=== PATIENT | female | born 1985 | race Caucasian/White ===

== ENCOUNTER 2024-02-04 03:28 | Day surgery (SDC) | payer OTHER, SELFPAY ==
[2024-02-03 19:21] VITALS: BP 118/64
[2024-02-03 19:35] LABS: % Basophils 0.4 % (0-2); % Eosinophils 0.2 % (0-6); % Immature Granulocytes 0.3 % (0-0.5); % Lymphocytes 10.6 % (20.5-51.1); % Monocytes 4.7 % (1.7-9.3); % Neutrophils 83.8 % (42.2-75.2); Absolute Basophils 0.1 10^3/uL (0-0.2); Absolute Immature Granulocytes 0.1 10^3/uL (0-0.05); Absolute Lymphocytes 1.7 10^3/uL (1.2-3.4); Absolute Monocytes 0.8 10^3/uL (0.1-0.6); Absolute Neutrophils 13.3 10^3/uL (1.4-6.5); Hematocrit 42.2 % (37.0-47.0); Hemoglobin 14.9 g/dL (12.0-16.0); Mean Corp Hgb Conc. 35.3 g/dL (33.0-37.0); Mean Corpuscular Hgb 33.6 pg (27.0-31.0); Mean Platelet Volume 9.5 fL (7.4-10.4); Nucleated Red Blood Cells % 0 %; Platelet Count 358 10^3/uL (130-400); Red Blood Cell Count 4.44 10^6/uL (4.20-5.40); Red Cell Dist. Width 12.3 % (11.5-14.5); White Blood Cell Count 15.9 10^3/uL (4.8-10.8)
[2024-02-03 19:54] LABS: ALT (SGPT) 17 U/L (0-35); AST (SGOT) 22 U/L (14-36); Albumin 4.5 g/dl (3.5-5.0); Alkaline Phosphatase 78 U/L (38-126); Blood Urea Nitrogen 17 mg/dl (7-17); Calcium 9.6 mg/dl (8.4-10.2); Carbon Dioxide 27 mmol/L (22-30); Chloride 103 mmol/L (98-107); Glucose 104 mg/dl (70-99); Potassium 4.4 mmol/L (3.5-5.1); Sodium 140 mmol/L (135-145); Total Bilirubin 0.5 mg/dl (0.2-1.3); Total Protein 7.3 g/dl (6.3-8.2); eGFR > 60.00
[2024-02-03 19:55] LABS: HCG, Serum Qualitative Screen Negative
--- NOTE | 2024-02-03 19:58 | ED.GENMED ---
History of Present Illness
General
Chief Complaint: Abdominal Pain
Source: patient and family
Exam Limitations: none
Time Seen by Provider: 02/03/24 19:44
Nursing documentation reviewed up to this point in time: agreed with
Travel History
Have you had any contact with someone who has COVID-19?: No
Do you have any symptoms of coronavirus? Fever > 100 degrees, chills, cough, shortness of breath, sore throat, loss of taste or smell, muscle aches, or headache?: No
History of Present Illness
History of Present Illness:
Pleasant 38-year-old female presents with left lower abdominal pain, that came on suddenly and has been persistent. She states that she has had an ovarian cyst in the past that cause similar pain. She denies any urinary symptoms. She states that
when her pain is at the worst, she has some nausea and vomiting. Denies fever or chills. Denies vaginal bleeding or discharge. Reports no urinary symptoms.
Past History
Past History
ED Past Medical History: None
ED Past Surgical History: None
Review of Systems
Review of Systems
Allergies reviewed?: Yes
Other source history: family
All Other Systems: ROS reviewed and negative except as documented in HPI and ROS
Constitutional: Reports no symptoms
EENT: Reports no symptoms
Respiratory: Reports no symptoms
Cardiac: Reports no symptoms
ABD/GI: Reports abdominal pain and nausea
: Reports no symptoms
Musculoskeletal: Reports no symptoms
Skin: Reports no symptoms
Neurological: Reports no symptoms
Endocrine: Reports no symptoms
Hematologic/Lymphatic: Reports no symptoms
Psychiatric: Reports anxiety
Phy Exam
General Physical Exam
General Presentation: well appearing and no apparent distress
General Skin: warm and dry
General Habitus: normal
General Mental: alert
General Hydration: appears well hydrated
ENT Exam
ENT Exam: EOMI, pharynx normal, neck supple and normocephalic
Eye Exam
Eye Exam: PERRL, cornea clear and conjunctiva normal
Cardiovascular Exam
Cardiovascular Exam: regular rate/rhythm, no edema, no murmur and normal peripheral pulses
Pulmonary Exam
Pulmonary Exam: lungs clear, no respiratory distress, no rales, no crackles, no rhonchi, no stridor, no wheezing and no cough
Gastrointestinal Exam
Gastrointestinal Exam: normal bowel sounds, soft, no organomegaly, no pulsatile mass, non distended and tender
Palpation: left lower quadrant: Mild tenderness
Neurological Exam
Neurological Exam: alert, oriented x3, no motor deficits and speech normal
Musculoskeletal Exam
Musculoskeletal Exam: full ROM and no edema
Skin Exam
Skin Exam: normal color, warm/dry, no rash and no petechia
Psychiatric Exam
Psychiatric Exam: normal mood/affect
Course
Orders/Labs/Results
Orders:
Orders
02/03/24 19:25
Urinalysis Urgent
Date Specimen was Collected: 02/03/24
Time Specimen was Collected: 19:25
Test Result ONCE
02/03/24 19:29
CMP [Comprehensive Metabolic Panel] Urgent
Complete Blood Count/With Diff Urgent
HCG, Serum Qualitative Screen Urgent
02/03/24 19:56
US Pelvis W Transvag Combined Urgent
Reason For Exam: left ovarian pain
02/03/24 21:17
Oxycodone/Acetaminophen [Percocet 5/325] 1 tablet PO NOW STA
02/03/24 21:47
Ondansetron Injectable [Zofran] 4 mg IV NOW STA
02/03/24 21:48
Morphine Sulfate 4 mg IV NOW STA
02/03/24 22:18
0.9% Sodium Chloride 1000 ml [Nss] 1,000 ml IV BOLUS
02/03/24 22:34
Ketorolac [Toradol] 30 mg IV NOW STA
02/04/24 00:05
CT Abd/pel Without Iv Or Oral Urgent
Reason For Exam: left flank pain
Abnormal Lab Results
02/03/24 02/04/24
19:29 01:05
WBC 15.9 H 10^3/uL
(4.8-10.8)
MCH 33.6 H pg
(27.0-31.0)
Abs Immat Gran (auto) 0.1 H 10^3/uL
(0-0.05)
Absolute Neuts (auto) 13.3 H 10^3/uL
(1.4-6.5)
Absolute Monos (auto) 0.8 H 10^3/uL
(0.1-0.6)
Neutrophils % 83.8 H %
(42.2-75.2)
Lymphocytes % 10.6 L %
(20.5-51.1)
Glucose 104 H mg/dl
(70-99)
Urine Ketones 3+ A
(Negative)
02/03/24 19:29
02/03/24 19:29
Vital Signs
Initial and Last Documented VS:
Initial Vital Signs
Temp Pulse Resp BP Pulse Ox
97.8 F 66 24 118/64 98
02/03/24 19:21 02/03/24 19:21 02/03/24 19:21 02/03/24 19:21 02/03/24 19:21
Last Documented Vital Signs
Temp Pulse Resp BP Pulse Ox
97.8 F 62 14 108/60 98
02/03/24 19:21 02/04/24 01:00 02/03/24 23:27 02/04/24 01:00 02/04/24 01:00
*Radiology
Radiology exam reviewed: radiology read reviewed
*Pulse Oximetry
Patient hypoxic: no
*Critical Care Note
Total Time (30-74mins, 75-104mins- exclusive of procedures): Not Applicable
Update Note
Update Note:
Back in to see the patient. Patient urinated a CAT scan. She feels that she cannot pee at this point. Did discuss CT scan after speaking of ultrasound results.
CT ABDOMEN/PELVIS WITHOUT CONTRAST
IMPRESSION:
1. Mild wall thickening of loops of small bowel within the central abdomen, likely represents underlying enteritis.
2. No bowel obstruction. Normal gallbladder and appendix
Incidentals:
-Distal esophageal wall thickening, can be correlated with signs or symptoms of esophagitis
- No obstructive uropathy. Prominent left ovarian cyst measuring up to 5.7 x 5.1 cm
- No hepatic or pancreatic mass.
- No abdominal aortic aneurysm.
- No acute osseous abnormality.
- No acute abnormality within the visualized lungs. Bibasilar atelectasis
- No acute abnormality within the visualized soft tissues.
ED Attending Note
-
Portions of this chart may have been created with voice recognition software.� Occasional wrong word or��sound alike� substitutions may have occurred due to the inherent limitations of voice recognition software.
Discharge Plan
Departure
Patient Disposition: Admit
Date of Disposition: 02/04/24
Time of Disposition: 02:40
Admit to: Med/Surg
Presentation/result/management discussed w/ accepting MD/DO: Hospitalist
Condition: Fair
Discharge Problem:
Left lower quadrant abdominal pain, Ovarian cyst, Enteritis
Instructions: Abdominal Pain, Ovarian Cyst (DC)
Prescriptions:
No Action
Control Pill
1 tab PO DAILY
Referrals:
NONE,* [Family Provider] -
Interventions
Interventions:
*Risk Screen - Suicide Last Done: 02/03/24 19:21
*General Assessment Last Done: 02/03/24 20:02
*Neglect/Abuse Screening Last Done: 02/03/24 19:21
*ED COVID-19 Vaccine History Last Done: 06/02/24 19:46
VB-Ooiplp-Ywkgnfvjgx Assessment Last Done: 02/03/24 20:02
ED-Female Genitourinary Assessment Last Done: 02/03/24 20:02
Discharge Date and Time
Print Language: LUXEMBOURGISH
[2024-02-03 20:02] VITALS: BMI 26.1
--- NOTE | 2024-02-03 20:06 | EDRN ---
Pt developed pain L flank earlier this morning and it has moved to LLQ. No pain in L flank now. Pain comes in waves and described as sharp. Nausea and vomiting - 5 episodes. No nausea now. Pt has had chills. Pt denies urinary symptoms, cp,
sob, diarrhea/constipation, bleeding, fever/cough. Pt had similar symptoms in the past but says she had bleeding at that time, passed out and when she woke up the pain was gone so she assumed she had an ovarian cyst. No hx kidney stones.
[2024-02-03 21:05] VITALS: BP 112/58
--- NOTE | 2024-02-03 21:24 | EDRN ---
Pt's bladder was not full so pt was sent back to ED. Pt vomited and says her pain is now 10/10, worse than childbirth. Pt declined PO percocet because because she is concerned she will vomit it up. Pt wants IV medications - Dr Sena informed.
[2024-02-03] MEDS: ZOFRAN 4 MG IV (21:51)
[2024-02-03] MEDS: MORPHINE SULFATE 4 MG IV (21:54)
[2024-02-03] MEDS: NSS 1000 IV (22:27)
[2024-02-03] MEDS: TORADOL 30 MG IV (22:38)
[2024-02-03 23:27] VITALS: BP 102/52
[2024-02-04] VITALS (20 sets, daily range): BP systolic 89–113; BP diastolic 5–70; PULSE 46–76
[2024-02-04 01:20] LABS: Urine Albumin Negative (Neg - Trace); Urine Bilirubin Negative (Negative); Urine Character Clear (Clear); Urine Color Yellow; Urine Glucose Negative (Negative); Urine Ketone 3+ (Negative); Urine Leukocyte Negative (Negative); Urine Nitrite Negative (Negative); Urine Occult Blood Negative (Negative); Urine Urobilinogen Negative (Neg - 1+)
--- NOTE | 2024-02-04 03:21 | HPS.HSE ---
Family Physician
-
Family Physician: * NONE
Chief Complaint
-
Abd Pain
History of Present Illness
Patient is a 38y F with no significant PMH who presents to ED complaining of abdominal pain with N/V. Patient states she was feeling fairly well until this afternoon when she developed LLQ abdominal discomfort. Her pain progressively worsened
throughout the afternoon and she developed nausea with mtuliple episodes of non-bloody, bilious emesis. Patient presented to the ED for further evaluation. She denies any diarrhea. Had a normal BM yesterday.
No fevers but complains of alternating hot / cold sensations.
Patient states that she had a similar episode in mid-November with severe LLQ pain and N/V. This resolved within 24 hours.
No other similar episodes.
LMP was 2 weeks ago.
Medical History
Past Medical History
Past Medical History: Reports None
Past Surgical History: Reports None
Social History
Tobacco: Smoker (Current every day smoker.)
Alcohol: None
Drug: None
Family History
Family History: Not pertinent
Allergies / Home Medications
Allergies reflects when Allergies were last updated in [employer].
Home Medications with original date entered in [employer]
Allergy/Medication List:
Allergies
Allergy/AdvReac Type Severity Reaction Status Date / Time
No Known Drug Allergies Allergy NONE Verified 02/03/24 19:25
Home Medications
Control Pill 1 tab PO DAILY 02/03/24
Review of Systems
-
History Source: Patient
A 12 point ROS was completed and negative except as noted: Yes
Constitutional: Reports Fatigue; Denies Fever or Chills
EENT: Denies Sore Throat
Respiratory: Denies Cough or Trouble Breathing
Cardiac: Denies Chest Pain or Palpitations
Abdomen/GI: Reports Abdominal Pain, Nausea, Vomiting and Anorexia; Denies Diarrhea, Constipated, Bloody Stools or Black Stools
: Denies Dysuria, Frequency or Flank Pain
Musculoskeletal: Denies Joint Pain or Edema
Neurological: Denies Dizzy or Headache
Psych: Denies Depression or Anxiety
Physical Exam
Vital Signs
Vital Signs
Temp Pulse Resp BP Pulse Ox
97.8 F 62 14 108/60 98
02/03/24 19:21 02/04/24 01:00 02/03/24 23:27 02/04/24 01:00 02/04/24 01:00
Physical Exam
General: Other (38y F in mild distress due to abdominal pain.)
HEENT: Moist mucous membranes and PERRLA
Respiratory: Clear; No Wheezes, Rales or Rhonchi
Cardiac: S1/S2 and Regular Rhythm; No Murmur
GI: Soft, Non Distended, Normal Bowel Sounds and Other (Mild LLQ tenderness with voluntary guarding. No rebound.)
Musculoskeletal: No Clubbing, No Cyanosis and No Edema
Neuro: AO x 3
Laboratory Results
-
02/03/24 19:29
02/03/24 19:29
Laboratory Results
Total Bilirubin 0.5 mg/dl (0.2-1.3) 02/03/24 19:29
AST 22 U/L (14-36) 02/03/24 19:29
ALT 17 U/L (0-35) 02/03/24 19:29
Alkaline Phosphatase 78 U/L (38-126) 02/03/24 19:29
Impression/Plan
-
A/P: Patient is a 38y F with no significant PMH who presents to ED complaining of abdominal pain with N/V.
Abdominal Pain
- Observe overnight for further evaluation and treatment.
- Differential at present based on symptoms and CT findings including ovarian cyst v enteritis.
- No diarrhea, fever, etc.
- Had similar symptoms in November - ? cyclic.
- Supportive care with IVFs, pain control, etc.
- HUMAN RESOURCES GENERALIST consult for further evaluation re: ovarian cyst.
- Follow for any new / worsening symptoms.
DVT Prophylaxis: SCDs
Code Status: Full
[2024-02-04] MEDS: NSS 1000 IV ×3 (04:13→20:57)
[2024-02-04] MEDS: DILAUDID 0.5 MG IV ×3 (04:20→14:39)
[2024-02-04 05:12] LABS: Hematocrit 37.9 % (37.0-47.0); Hemoglobin 13.4 g/dL (12.0-16.0); Mean Corp Hgb Conc. 35.4 g/dL (33.0-37.0); Mean Corpuscular Hgb 33.8 pg (27.0-31.0); Mean Corpuscular Volume 95.5 fL (81.0-99.0); Mean Platelet Volume 9.9 fL (7.4-10.4); Platelet Count 320 10^3/uL (130-400); Red Blood Cell Count 3.97 10^6/uL (4.20-5.40); Red Cell Dist. Width 12.2 % (11.5-14.5); White Blood Cell Count 12.3 10^3/uL (4.8-10.8)
[2024-02-04 05:30] LABS: ALT (SGPT) 14 U/L (0-35); AST (SGOT) 21 U/L (14-36); Albumin 3.6 g/dl (3.5-5.0); Alkaline Phosphatase 69 U/L (38-126); Blood Urea Nitrogen 12 mg/dl (7-17); Calcium 8.7 mg/dl (8.4-10.2); Carbon Dioxide 22 mmol/L (22-30); Chloride 105 mmol/L (98-107); Direct Bilirubin 0.4 mg/dl (0.0-0.4); Estimated Creatinine Clearance 111 ml/min; Glucose 100 mg/dl (70-99); Potassium 3.8 mmol/L (3.5-5.1); Sodium 135 mmol/L (135-145); Total Bilirubin 0.7 mg/dl (0.2-1.3); Total Protein 6.1 g/dl (6.3-8.2); eGFR > 60.00
[2024-02-04] MEDS: NSS (PRESERVATIVE FREE) 10 ML IV (07:57)
[2024-02-04] MEDS: TORADOL 15 MG IV ×2 (07:57→14:37)
[2024-02-04] MEDS: PROTONIX IV 40 MG IV (07:57)
--- NOTE | 2024-02-04 09:24 | W.PN.HOSP.TC ---
Today's Communication/Plan
-
TRAINING DEVELOPER took patient to the OR given her ovarian cyst
Hopefully abominal pain will improve
Assessment / Plan
Assessment / Plan
Physical Exam
General: Other (38y F in mild distress due to abdominal pain.)
HEENT: Moist mucous membranes
Respiratory: Clear; No Wheezes, Rales or Rhonchi
Cardiac: S1/S2 and Regular Rhythm; No Murmur
GI: Soft, Non Distended, Normal Bowel Sounds and Other (Mild LLQ tenderness with voluntary guarding. No rebound.)
Musculoskeletal: No Clubbing, No Cyanosis and No Edema
Neuro: AO x [address] Abdomen/Pelvis results, as per radiologist's report:
IMPRESSION:
1. Left adnexal cyst measuring up to 4.7 cm in diameter, consistent with the complex cyst seen on pelvic ultrasound of one day prior. No other acute intra-abdominal process is identified.
2. Tiny fat attenuation lesion of the left kidney as above, possible small benign angiomyolipoma.
3. Probable small hiatal hernia.
4. Preliminary report describes possible enteritis. While this is possible, in the absence of either intravenous or enteric contrast I do not see findings to definitively confirm the presence of acute enteritis.
US Pelvis with Transvaginal Ultrasound, as per radiologist's report:
IMPRESSION:
Probably benign complex cyst of the left ovary. Repeat ultrasound in 6 weeks at a different phase of patient's menstrual cycle is recommended.

Assessment/Plan
A/P: Patient is a 38y F with no significant PMH who presents to ED complaining of abdominal pain with N/V.
Abdominal Pain Suspected Secondary to Ovarian Cyst on Imaging and Enteritis on CT imaging
- Differential at present based on symptoms and CT findings including ovarian cyst v enteritis.
- No diarrhea, fever, etc.
- Had similar symptoms in November - ? cyclic.
- Supportive care with IVFs, pain control, etc.
- TRAINING DEVELOPER consult for further evaluation re: ovarian cyst: TRAINING DEVELOPER took patient to the OR
- Follow for any new / worsening symptoms.
DVT Prophylaxis: SCDs
Code Status: Full
Anticipated Discharge: 24 - 48 hours
Subjective/Interval History
-
Date of Service: February 04, 2024
Patient was seen and examined. She reported continued abdominal pain with temporary relief with dilaudid.
Objective Data
-
Labs:
Laboratory Results
02/04/24
05:00
WBC 12.3 H
Hgb 13.4
Hct 37.9
Plt Count 320
Sodium 135
Potassium 3.8
Chloride 105
Carbon Dioxide 22
BUN 12
Creatinine 0.5 L
Glucose 100 H
Calcium 8.7
Total Bilirubin 0.7
AST 21
ALT 14
Alkaline Phosphatase 69
Vital Signs:
Vital Signs
Temp Pulse Resp BP Pulse Ox
98 F 64 18 98/52 95
02/04/24 07:31 02/04/24 07:31 02/04/24 07:31 02/04/24 07:31 02/04/24 07:31
[2024-02-04 18:39] LABS: CA 125 < 5.5 U/mL (0-35)
--- NOTE | 2024-02-04 19:53 | W.IMMPOSTOP ---
Surgical Immed Post Op Note
-
Primary Surgeon: Tiara Patterson DO
Assisting Surgeon: none
PA-Student Bev GANN
Pre-op Diagnosis: Left lower quadrant pain, left ovarian cyst
Post-op Diagnosis: same, torsion left adnexa
Procedure Performed: Dx laparoscopy with detorsion of left adnexa and left ovarian cystectomy; aspiration of pelvic fluid.
Anesthesia Type: general Dr. Cruz
Specimen / Cultures: 1. pelvic fluid aspirate for cytology 2. left ovarian cyst wall
Estimated Blood Loss: 5ml
Complications: none
Operative Findings: Large left ovarian cyst approx 5cm. Cyst containing straw colored fluid, smooth capsule. Left adnexa torsed. Healthy tissue noted. Normal appearing tubes. Normal appearing right ovary. Normal appearing appendix.
Counts correct times 2.
Stable to recovery.
Dictated. #[id number]
[2024-02-04] MEDS: COLACE 100 MG PO (21:42)
[2024-02-04] MEDS: NORMOSOL-R 1000 IV (22:56)
[2024-02-05 00:30] VITALS: BP 93/51
[2024-02-05] MEDS: NSS IV (01:39)
[2024-02-05 03:45] VITALS: BP 93/66; BP 97/60; BP 99/58
[2024-02-05 03:48] VITALS: BP 93/66
[2024-02-05] MEDS: NORMOSOL-R 1000 IV (04:47)
[2024-02-05 05:56] LABS: % Basophils 0.1 % (0-2); % Immature Granulocytes 0.3 % (0-0.5); % Monocytes 4.5 % (1.7-9.3); % Neutrophils 85.1 % (42.2-75.2); Absolute Lymphocytes 1.2 10^3/uL (1.2-3.4); Absolute Monocytes 0.5 10^3/uL (0.1-0.6); Hematocrit 37.3 % (37.0-47.0); Hemoglobin 12.2 g/dL (12.0-16.0); Mean Corp Hgb Conc. 32.7 g/dL (33.0-37.0); Mean Corpuscular Volume 100.8 fL (81.0-99.0); Mean Platelet Volume 10.2 fL (7.4-10.4); Nucleated Red Blood Cells % 0 %; Platelet Count 277 10^3/uL (130-400); Red Cell Dist. Width 12.4 % (11.5-14.5); White Blood Cell Count 11.7 10^3/uL (4.8-10.8)
[2024-02-05 06:00] VITALS: BMI 27.9
[2024-02-05 06:21] LABS: Blood Urea Nitrogen 7 mg/dl (7-17); Carbon Dioxide 26 mmol/L (22-30); Chloride 107 mmol/L (98-107); Estimated Creatinine Clearance > 125 ml/min; Potassium 4.4 mmol/L (3.5-5.1); Sodium 137 mmol/L (135-145)
[2024-02-05] MEDS: COLACE 100 MG PO (07:53)
[2024-02-05] MEDS: PROTONIX IV 40 MG IV (07:54)
[2024-02-05] MEDS: DILAUDID 0.5 MG IV (07:54)
[2024-02-05 08:09] VITALS: BP 102/62; BP 106/59; BP 93/47; PULSE 62; PULSE 75
--- NOTE | 2024-02-05 08:26 | W.PN.OBG.DWH ---
Today's Communication / Plan
-
stable from equipment operating engineer standpoint for dc home today after breakfast.
Assessment/Plan
-
POD# 1 s/p dx laparoscopy detorsion left adnexa, left ovarian cystectomy
Stable for dc home
Reviewed dc instructions
Rx oxycodone sent to pharm
Follow up in 1-2 wks in office. Pt aware to call for appt
Subjective Data
-
POD#1 Feeling well. Hungry. Pain is less than before surgery.
No complaints.
Objective Data
-
Laboratory Results
02/05/24 05:31
02/05/24 05:31
Vital Signs
Temp Pulse Resp BP Pulse Ox
98.9 F 62 21 93/47 96
02/05/24 08:09 02/05/24 08:09 02/05/24 08:09 02/05/24 08:09 02/05/24 08:09
VSS afeb
abd: soft NDNT inc cdi
ext: no calf pain
[2024-02-05 09:15] VITALS: BP 102/58; BP 104/66; BP 107/55; PULSE 48; PULSE 50; PULSE 55
[2024-02-05 09:50] LABS: Cortisol, Random 1.3 ug/dl
--- NOTE | 2024-02-05 11:29 | W.PN.HOSP.TC ---
Today's Communication/Plan
-
Discharge today
Assessment / Plan
Assessment / Plan
Physical Exam
General: Not in acute distress.
HEENT: Moist mucous membranes
Respiratory: Clear to Auscultation Bilaterally
Cardiac: S1/S2 and Regular Rhythm
GI: Soft, Non Distended, Normal Bowel Sounds. Mild abdominal tenderness as expected with the surgery.
Musculoskeletal: No Cyanosis and No Edema
Neuro: AAO x [address] Abdomen/Pelvis results, as per radiologist's report:
IMPRESSION:
1. Left adnexal cyst measuring up to 4.7 cm in diameter, consistent with the complex cyst seen on pelvic ultrasound of one day prior. No other acute intra-abdominal process is identified.
2. Tiny fat attenuation lesion of the left kidney as above, possible small benign angiomyolipoma.
3. Probable small hiatal hernia.
4. Preliminary report describes possible enteritis. While this is possible, in the absence of either intravenous or enteric contrast I do not see findings to definitively confirm the presence of acute enteritis.
US Pelvis with Transvaginal Ultrasound, as per radiologist's report:
IMPRESSION:
Probably benign complex cyst of the left ovary. Repeat ultrasound in 6 weeks at a different phase of patient's menstrual cycle is recommended.

Assessment/Plan
A/P: Patient is a 38y F with no significant PMH who presents to ED complaining of abdominal pain with N/V.
Abdominal Pain Suspected Secondary to Ovarian Cyst on Imaging and Possibly Enteritis on CT imaging
Status post laparoscopy with detorsion of left adnexa and left ovarian cystectomy, and aspiration of pelvic fluid on February 06, 2024
- Patient is feeling better after surgery yesterday
- LOSS PREVENTION LEAD consult for further evaluation re: ovarian cyst: LOSS PREVENTION LEAD took patient to the OR
- Follow up with Dr. Tiara Patterson in 1-2 weeks.
Hypotension, asymptomatic
-Patient reports her blood pressure is chronically low
-She denied any dizziness or chest pain or any orthostatic symptoms
-Orthostatic vital signs negative
-Follow-up with PCP outpatient
DVT Prophylaxis: SCDs
Code Status: Full
More than 30 minutes spent in discharge including
Final examination of the patient
Summarizing hospital stay
Instructions for continuing care to all relevant caregivers
Preparation of discharge records, prescriptions, and referral forms
Total time spent (in minutes): 37
Anticipated Discharge: Today
Subjective/Interval History
-
Date of Service: February 05, 2024
Patient was seen and examined. She reports her abdominal pain has improved after surgery yesterday. She denied dizziness, chest pain, shortness of breath or palpitations.
Objective Data
-
Labs:
Laboratory Results
02/05/24
05:31
WBC 11.7 H
Hgb 12.2
Hct 37.3
Plt Count 277
Sodium 137
Potassium 4.4
Chloride 107
Carbon Dioxide 26
BUN 7
Creatinine 0.6
Vital Signs:
Vital Signs
Temp Pulse Resp BP Pulse Ox
98.9 F 62 21 93/47 96
02/05/24 08:09 02/05/24 08:09 02/05/24 08:09 02/05/24 08:09 02/05/24 08:09
I&O
02/04/24 02/05/24 02/06/24
06:59 06:59 06:59
Intake Total 500 / 500
Balance 500 / 500
--- NOTE | 2024-02-05 12:50 | W.DS.TRANS ---
DC Summary - Auto Transmission Technician
-
Discharge Instructions:
Discharge Diagnosis/Procedures Left adnexal torsion, left ovarian cyst-> dx
laparoscopy left ovarian cystectomy
Hypotension, asymptomatic
CT Abdomen/Pelvis results, as per radiologist's
report:
'IMPRESSION:
1. Left adnexal cyst measuring up to 4.7 cm in
diameter, consistent with the complex cyst seen
on pelvic ultrasound of one day prior. No other
acute intra-abdominal process is identified.
2. Tiny fat attenuation lesion of the left
kidney as above, possible small benign
angiomyolipoma.
3. Probable small hiatal hernia.
4. Preliminary report describes possible
enteritis. While this is possible, in the
absence of either intravenous or enteric
contrast I do not see findings to definitively
confirm the presence of acute enteritis.'
US Pelvis with Transvaginal Ultrasound, as per
radiologist's report:
'IMPRESSION:
Probably benign complex cyst of the left ovary.
Repeat ultrasound in 6 weeks at a different
phase of patient's menstrual cycle is
recommended.'
Diet Regular,As tolerated
Activity No strenuous activity
Driving Restrictions No driving for 1 week
Bathing Restrictions OK to Shower
Instructions:
Stand-Alone Forms:
Changes to Home Medications: Yes
Discharge Medications:
DC Medications w/original date entered in [employer]
acetaminophen 325 mg tablet 650 mg (2 x 325 mg) PO Q4HPRN PRN Mild Pain / Temp > 101 #0 tabs 02/04/24
norethindrone (contraceptive) 0.35 mg tablet 0.35 mg PO DAILY Hormonal Agent 02/04/24
oxycodone 5 mg tablet 2.5 mg (1/2 x 5 mg) PO Q4HPRN PRN moderate pain #0 tabs 02/04/24
oxycodone 5 mg tablet 5 mg PO Q4HPRN PRN severe pain when tolerating PO #10 tabs 02/04/24
Home Medication Changes
Tylenol and Oxycodone are new.
Pending Results: Yes
Additional Pending Results:
Lab/pathology results from hospitalization
Total time spent discharging patient (in min): 37
--- NOTE | 2024-02-05 13:08 | CM ---
processing manager reviewed patient's chart and met with patient and patient was admitted under OBS but switched to PSR, patient lives with mother and daughter in a 2 story home, patient is independent with adl's and ambulation, no dme, [facility] pharmacy.
[facility]
Plan; Home today no needs.
--- NOTE | 2024-02-06 12:50 | W.PN.UPDATE ---
Update Note
Progress Note Update
I contacted (via [employer]) hospitality internship Dr. Alejo today to request him or his office to set up an outpatient appointment for the patient given her low cortisol and some soft blood pressures. They will contact patient and set up an appointment
for her to follow-up and evaluate patient.
[2024-02-06 16:58] LABS: CA 19-9 3 U/mL (<=35)
--- NOTE | 2024-02-08 11:36 | W.DCSUMMARY ---
Discharge Summary
Discharge Data
Date of Admission: 02/04/24
Date of Discharge: 02/05/24
Total time spent discharging patient (in min): 37
-
Pending Results: Yes
Additional Pending Results:
Lab/pathology results from hospitalization
Hospital Course
38 y/o female who presented to the [facility] Emergency Department complaining of abdominal pain with nausea and vomiting. Patient had CT imaging done which showed a left ovarian cyst as well as possible enteritis (see official CT imaging
report and findings below). Gynecology was consulted, took patient to the operating room, where patient was found to have left adnexal torsion as well, they performed diagnostic laparoscopy with detorsion of left adnexa and left ovarian cystectomy,
with aspiration of pelvic fluid. Findings from the surgery, as per Dr. Patterson, included, ' Large left ovarian cyst approx 5cm. Cyst containing straw colored fluid, smooth capsule. Left adnexa torsed. Healthy tissue noted. Normal appearing tubes.
Normal appearing right ovary. Normal appearing appendix.' Patient had asymptomatic low blood pressures, for which she would need to follow-up with primary care and endocrinology outpatient.
Discharge Plan
-
Patient Disposition: Home (Routine Discharge)
Discharge Diagnosis/Procedures: Left adnexal torsion, left ovarian cyst-> dx laparoscopy left ovarian cystectomy
Hypotension, asymptomatic
CT Abdomen/Pelvis results, as per radiologist's report:
'IMPRESSION:
1. Left adnexal cyst measuring up to 4.7 cm in diameter, consistent with the complex cyst seen on pelvic ultrasound of one day prior. No other acute intra-abdominal process is identified.
2. Tiny fat attenuation lesion of the left kidney as above, possible small benign angiomyolipoma.
3. Probable small hiatal hernia.
4. Preliminary report describes possible enteritis. While this is possible, in the absence of either intravenous or enteric contrast I do not see findings to definitively confirm the presence of acute enteritis.'
US Pelvis with Transvaginal Ultrasound, as per radiologist's report:
'IMPRESSION:
Probably benign complex cyst of the left ovary. Repeat ultrasound in 6 weeks at a different phase of patient's menstrual cycle is recommended.'
Condition: Good
Diet: As tolerated and Regular
Activity: No strenuous activity
Driving Restrictions: No driving for 1 week
Bathing Restrictions: OK to Shower
Activity Restrictions/Additional Instructions:
Please call office to schedule a follow up appt in 1-2 wks. [phone]
Call for fever greater than 100.4, chills, severe abdominal pain not relieved by pain meds, dizziness, lightheadedness or other concerns.
Referrals:
Lita Alejo MD [Consulting Staff] - in one to two weeks (Low cortisol and episodes of lower blood pressures)
Tiara Patterson, DO [Active] - in two weeks
NONE,* [Family Provider] -
Additional Discharge Medication Instructions: Tylenol and Oxycodone are new.
Prescriptions:
New
acetaminophen 325 mg Tablet
650 mg PO Q4HPRN PRN (Reason: Mild Pain / Temp > 101) Qty: 0 0RF
oxycodone 5 mg Tablet
2.5 mg PO Q4HPRN PRN (Reason: moderate pain) Qty: 0 0RF
oxycodone 5 mg Tablet
5 mg PO Q4HPRN PRN (Reason: severe pain when tolerating PO) Qty: 10 0RF
Continued
norethindrone (contraceptive) 0.35 mg Tablet
0.35 mg PO DAILY
Discharge Orders:
Discharge Patient (As Directed); Ordered 02/05/24
Ordered By: Ruel Sebastian
Discharge Date and Time
Discharge Date/Time: 02/05/24 13:06
Print Language: MALTESE
== END 2024-02-05 13:06 | disposition home or self-care (01) ==
LOC: PACU 03:28
PROVIDERS: Hospitalist; Obstetrics & Gynecology; EMERGENCY PHYSICIAN Student in an Organized Health Care Education/Training Program
DX: N83.292 Other ovarian cyst, left side (principal)
CPT/HCPCS: 58662; 88305; 74176; 76830; 76856; 80051; 80053; 81003; 82248; 82378; 82533; 82565; 84443; 84520; 84703; 85025; 85027; 86301; 86304; 88112; 96374; 96375; 99285; G0378